=== PATIENT | female | born 1985 | race Caucasian/White ===

== ENCOUNTER 2017-07-26 12:30 | Emergency (ER) | payer OTHER ==
[~2017-07-26] VITALS: Ht 180.3 cm; Wt 101.3 kg
[2017-07-26 12:32] VITALS: TEMP 36.6; Ht 180.3 cm; Wt 101.3 kg
[2017-07-26] MEDS ORDERED: BCPILLS PO (13:25)
[2017-07-26] MEDS ORDERED: TRIA1SPR4 NAE (13:25)
[2017-07-26] MEDS ORDERED: CETI10TA84 PO (13:25)
--- NOTE | 2017-07-26 14:37 | DIAGNOSTIC IMAGING REPORT ---
LEFT LOWER EXTREMITY VENOUS DOPPLER CLINICAL HISTORY: Left leg pain. Foot fracture. COMPARISON STUDY: No previous studies for comparison. TECHNIQUE: Sonography of the deep venous system of the left lower extremity was performed. Compression and augmentation were evaluated. FINDINGS: The left common femoral, superficial femoral and popliteal veins were compressible. Augmentation was normal. Note was made of thrombus within the left posterior tibial and peroneal veins. IMPRESSION: Deep venous thrombus within the left posterior tibial and peroneal veins. Electronically signed by: Yony Hargrove M.D. 07/26/2017 2:36 PM Dictated Date/Time: 07/26/2017 2:34 PM
[2017-07-26 15:22] LABS: BASO % 0.2 %; BASO ABS # 0.02 K/uL (0-0.2); COMPLETE YES; EOS % 0.9 %; HEMATOCRIT 38.6 % (37-47); IG% 0.3 %; LYMPH ABS # 2.17 K/uL (1.2-3.4); MEAN CELL VOLUME 88.7 fL (80-100); MEAN CORPUSCULAR HEMOGLOBIN 30.6 pg (25-34); MEAN CORPUSCULAR HGB CONC 34.5 g/dl (32-36); MONO % 7.8 %; NEUT % 66.8 %; PLATELET COUNT 232 K/uL (130-400); RED BLOOD COUNT 4.35 M/uL (4.2-5.4); WHITE BLOOD COUNT 9.03 K/uL (4.8-10.8)
[2017-07-26 15:29] LABS: PROTHROMBIN TIME (PATIENT) 10.4 SECONDS (9.0-12.0)
[2017-07-26 15:37] LABS: BUN/CREATININE RATIO 10.3 (10-20); CALCIUM 8.9 mg/dl (8.5-10.1); CREATININE 0.91 mg/dl (0.60-1.20); POTASSIUM 3.8 mmol/L (3.5-5.1)
[2017-07-26] MEDS ORDERED: RIVA1.5T PO (15:42)
--- NOTE | 2017-07-26 15:43 | EMERGENCY ROOM VISIT NOTE ---
History First contact with patient: 12:43 Chief Complaint: LEG PAIN,LEG INJURY Stated Complaint: L LEG CRAMPING, SAME SIDE FRACTURED FOOT History of Present Illness The patient is a 32 year old female who presents to the Emergency Room with complaints of left leg pain. The patient states that 2 weeks ago, she fell and fractured her fifth metatarsal. She has been seen by [facility] and was placed in a walking boot. She states that approximately 5 days ago, she began to have cramping in her left calf. She initially thought this was due to wearing the walking boot, but states the pain has persisted. It is intermittent. She denies any redness or swelling. She does take control pills. She does not smoke. She denies any recent travel. She denies any history of blood clots. She denies chest pain or shortness of breath. Review of Systems A complete 10 point review of systems was reviewed with the patient with pertinent positives and negatives as per history of present illness. All else were negative. Social History Smoking Status: Never Smoker Current/Historical Medications Scheduled Control Pills ( Control Pills), 1 TAB PO DAILY Cetirizine (Zyrtec), 10 MG PO DAILY Rivaroxaban (Xarelto), 15 MG PO BID Triamcinolone Acetonide (Nasal (Nasacort Allergy 24Hr), 2 SPRAY WIL DAILY Physical Exam Vital Signs Date Time Temp Pulse Resp B/P (MAP) Pulse Ox O2 Delivery O2 Flow Rate FiO2 07/26/17 15:54 98 126/74 99 07/26/17 15:04 91 16 131/83 100 07/26/17 12:32 36.6 109 20 137/85 95 Room Air Physical Exam VITALS: Vitals are noted on the nurse's note and reviewed by myself. Vital signs stable. GENERAL: This is a 32-year-old female, in no acute distress, nondiaphoretic, well-developed well-nourished. HEART: Regular rate and rhythm without murmurs gallops or rubs. LUNGS: Clear to auscultation bilaterally without wheezes, rales or rhonchi. EXTREMITIES: Walking boot in place on the left lower extremity. There is tenderness of the left calf. No erythema, swelling, or palpable cord. NEURO: Patient was alert and oriented to person place and time. Medical Decision & Procedures ER Provider Diagnostic Interpretation: LEFT LOWER EXTREMITY VENOUS DOPPLER CLINICAL HISTORY: Left leg pain. Foot fracture. COMPARISON STUDY: No previous studies for comparison. TECHNIQUE: Sonography of the deep venous system of the left lower extremity was performed. Compression and augmentation were evaluated. FINDINGS: The left common femoral, superficial femoral and popliteal veins were compressible. Augmentation was normal. Note was made of thrombus within the left posterior tibial and peroneal veins. IMPRESSION: Deep venous thrombus within the left posterior tibial and peroneal veins. Laboratory Results 07/26/17 15:10 Red Blood Count 4.35, Mean Corpuscular Volume 88.7, Mean Corpuscular Hemoglobin 30.6, Mean Corpuscular Hemoglobin Concent 34.5, Mean Platelet Volume 10.0, Neutrophils (%) (Auto) 66.8, Lymphocytes (%) (Auto) 24.0, Monocytes (%) (Auto) 7.8, Eosinophils (%) (Auto) 0.9, Basophils (%) (Auto) 0.2, Neutrophils # (Auto) 6.03, Lymphocytes # (Auto) 2.17, Monocytes # (Auto) 0.70, Eosinophils # (Auto) 0.08, Basophils # (Auto) 0.02 07/26/17 15:10 Test 07/26/17 15:10 White Blood Count 9.03 K/uL (4.8-10.8) Red Blood Count 4.35 M/uL (4.2-5.4) Hemoglobin 13.3 g/dL (12.0-16.0) Hematocrit 38.6 % (37-47) Mean Corpuscular Volume 88.7 fL (80-100) Mean Corpuscular Hemoglobin 30.6 pg (25-34) Mean Corpuscular Hemoglobin Concent 34.5 g/dl (32-36) Platelet Count 232 K/uL (130-400) Mean Platelet Volume 10.0 fL (7.4-10.4) Neutrophils (%) (Auto) 66.8 % Lymphocytes (%) (Auto) 24.0 % Monocytes (%) (Auto) 7.8 % Eosinophils (%) (Auto) 0.9 % Basophils (%) (Auto) 0.2 % Neutrophils # (Auto) 6.03 K/uL (1.4-6.5) Lymphocytes # (Auto) 2.17 K/uL (1.2-3.4) Monocytes # (Auto) 0.70 K/uL (0.11-0.59) Eosinophils # (Auto) 0.08 K/uL (0-0.5) Basophils # (Auto) 0.02 K/uL (0-0.2) RDW Standard Deviation 43.5 fL (36.4-46.3) RDW Coefficient of Variation 13.4 % (11.5-14.5) Immature Granulocyte % (Auto) 0.3 % Immature Granulocyte # (Auto) 0.03 K/uL (0.00-0.02) Prothrombin Time 10.4 SECONDS (9.0-12.0) Prothromb Time International Ratio 1.0 (0.9-1.1) Activated Partial Thromboplast Time 24.7 SECONDS (21.0-31.0) Partial Thromboplastin Ratio 1.0 Anion Gap 7.0 mmol/L (3-11) Est Creatinine Clear Calc Drug Dose 114.1 ml/min Estimated GFR () 95.4 Estimated GFR (Non- 82.3 BUN/Creatinine Ratio 10.3 (10-20) Calcium Level 8.9 mg/dl (8.5-10.1) ED Course The patient was evaluated as above. Venous ultrasound was performed and read by radiology as above. Patient was reevaluated and findings were discussed. Baseline labs were drawn. Discharge instructions were reviewed with the patient. The patient verbalized understanding of my assessment and treatment plan and was discharged home in good condition. Medical Decision Differential diagnosis includes DVT, superficial thrombus, muscle strain, among others. The patient is a 32-year-old female recently diagnosed with fifth metatarsal fracture who presents today complaining of left calf pain. Ultrasound did show DVT of the left lower extremity. Baseline labs were drawn. Risks/benefits of anticoagulation with Xarelto versus Coumadin were discussed with the patient. She prefers Xarelto. The patient has no chest pain or shortness of breath to suggest pulmonary embolism. She was mild tachycardia, but I think this is likely secondary to anxiety regarding today's visit. She was educated to return for any symptoms which would be concerning for pulmonary embolism. Her DVT was likely secondary to being more sedentary than usual. She was instructed to follow-up with her PCP this week for further evaluation and treatment. Based on the patient's presentation and work up, I feel the patient is stable for outpatient treatment. The patient was educated to return to the emergency department for any worsening of their current condition or new/concerning symptoms. She will follow up with her PCP. Medication Reconcilliation Current Medication List: was personally reviewed by me Blood Pressure Screening Patient's blood pressure: Normal blood pressure Impression Primary Impression: Deep vein thrombosis Departure Information Dispostion Home / Self-Care Condition GOOD Prescriptions Rivaroxaban (XARELTO) 15 Mg Tab 15 MG PO BID for 21 Days, #42 TAB Prov: Brit Mesa PA-C 07/26/17 Referrals Soheila Buchanan D.O. (PCP) Patient Instructions DVT, My [facility] Additional Instructions Xarelto as prescribed. Follow-up with your primary care provider this week for further evaluation and for further prescriptions. For pain control, you can use the following [id number] medicines (if >12 yo): - Regular strength (325mg/tab) Tylenol (acetaminophen) 2 tabs every 4-6 hours as needed. Do not exceed 12 tablets in a 24 hour period. Avoid taking more than 4 grams (4000 mg) of Tylenol per day. This includes any other sources of acetaminophen you may take on a regular basis. Follow-up with orthopedics regarding the fracture. Return to the emergency department immediately with chest pain, shortness of breath, passing out or new/concerning symptoms. Problem Qualifiers Primary Impression: Deep vein thrombosis DVT location: lower extremity Affected thrombotic vein of extremity: tibial Chronicity: acute Laterality: left Qualified Codes: I82.442 - Acute embolism and thrombosis of left tibial vein
[2017-07-26 15:54] VITALS: BP 126/74; PULSE 98; O2SAT 99
== END 2017-07-26 15:55 | disposition home or self-care (01) ==
LOC: C.EDB 12:32 → C.EDD 15:55
DX: I82.442 Acute embolism and thrombosis of left tibial vein (principal); Z79.3 Long term (current) use of hormonal contraceptives; Z79.899 Other long term (current) drug therapy